=== PATIENT | male | born 1970 | race Caucasian/White ===

== ENCOUNTER 2020-11-21 17:56 | Inpatient (IN) | payer OTHER ==
[~2020-11-21] VITALS: Ht 177.8 cm; Wt 90.7 kg
[2020-11-21] MEDS ORDERED: LOSARTAN-HCTZ1 EAC1 (18:13)
[2020-11-26] MEDS ORDERED: TAMS0.4C PO (14:17)
[2020-11-26] MEDS ORDERED: CEFDINIR300 MG PO (14:17)
== END 2020-11-26 14:33 | disposition home or self-care (01) | DRG 694 ==
LOC: ER 17:56 → MEDI 11-22 18:24
PROVIDERS: ADMIT Internal Medicine; ATTEND Internal Medicine
PROC: BW21ZZZ Computerized Tomography (CT Scan) of Abdomen and Pelvis (ICD-10-PCS; principal; 2020-11-21)
DX: N20.0 Calculus of kidney (principal); N17.9 Acute kidney failure, unspecified; I10 Essential (primary) hypertension; Z87.442 Personal history of urinary calculi; Z20.822 Contact with and (suspected) exposure to COVID-19

== ENCOUNTER 2023-01-12 16:23 | Inpatient (IN) | payer OTHER ==
[~2023-01-12] VITALS: Ht 152.4 cm; Wt 90.7 kg
[~2023-01-12 16:23] MED LIST: CEFDINIR300 MG PO; LOSARTAN-HCTZ1 EAC1; TAMS0.4C PO
[2023-01-12 17:25] LABS: HEMATOCRIT 49.6 % (39.0-48.0); HEMOGLOBIN 16.7 g/dL (13-16.00); MEAN CELL VOLUME 89.6 fL (80.0-100.00); MEAN CORPUSCULAR HEMOGLOBIN 30.2 pg (27.00-32.0); MEAN CORPUSCULAR HGB CONC 33.7 g/dl (32.0-36.0); PLATELET COUNT 180 K/uL (150-450); RED BLOOD COUNT 5.54 M/uL (4.00-6.00); RED CELL DISTRIBUTION WIDTH 13.9 % (11.5-14.5)
[2023-01-12 17:31] LABS: PH,URINE 5.5 (5.0-8.0); URINE APPEARANCE Clear; URINE BILIRRUBIN Negative (NEGATIVE); URINE BLOOD Small; URINE COLOR Yellow; URINE GLUCOSE Negative (NEGATIVE); URINE LEUKOCYTE Negative; URINE NITRATE Negative; URINE UROBILINOGEN 0.2 E.U./dl
[2023-01-12 17:32] LABS: URINE BACTERIA 6.2 uL (0.0-1933); URINE EPITHELIAL CELLS 0.9 uL (0.0-38.8); URINE PROTEIN 100 (NEGATIVE); URINE RBC 23.9 uL (0.0-20.8); URINE WBC 1.3 uL (0.0-23.2)
[2023-01-12 17:43] LABS: CALCIUM 9.3 mg/dL (8.5-10.1); CREATININE SERUM 2.35 mg/dL (0.70-1.30); GFR 29.27; POTASSIUM 4.01 mEq/L (3.5-5.1)
[2023-01-14 16:41] LABS: INR 1.23; PARTIAL THROMBOPLASTIN TIME 31.1 SECONDS (22.0-34.0); PROTHROMBIN TIME 12.7 SECONDS (9.0-11.5)
[2023-01-15 08:06] LABS: HEMATOCRIT 45.9 % (39.0-48.0); HEMOGLOBIN 15.6 g/dL (13-16.00); MEAN CELL VOLUME 89.7 fL (80.0-100.00); MEAN CORPUSCULAR HEMOGLOBIN 30.6 pg (27.00-32.0); MEAN CORPUSCULAR HGB CONC 34.1 g/dl (32.0-36.0); PLATELET COUNT 199 K/uL (150-450); RED BLOOD COUNT 5.11 M/uL (4.00-6.00); RED CELL DISTRIBUTION WIDTH 14.2 % (11.5-14.5)
[2023-01-15 09:11] LABS: ALBUMIN 3.5 gm/dL (3.4-5.0); BILIRUBIN TOTAL 1.07 mg/dL (0.3-1.2); CALCIUM 9.3 mg/dL (8.5-10.1); CREATININE SERUM 2.38 mg/dL (0.70-1.30); GFR 28.85; GLOBULINA 4.2 G/DL (2.4-3.5); POTASSIUM 4.19 mEq/L (3.5-5.1); TOTAL PROTEIN 7.7 gm/dL (6.4-8.2)
[2023-01-15 09:20] LABS: PHOSPHOROUS 3.9 mg/dL (2.5-4.9)
== END 2023-01-16 13:55 | disposition home or self-care (01) | DRG 661 ==
LOC: ER 16:23 → MEDJ 01-13 13:45 → SEC-K 01-13 13:45 → MEDJ 01-13 16:17
PROVIDERS: Emergency Medicine; Internal Medicine; Urology; ADMIT Internal Medicine; ATTEND Internal Medicine
PROC: BW21ZZZ Computerized Tomography (CT Scan) of Abdomen and Pelvis (ICD-10-PCS; 2023-01-12)
PROC: 0T768DZ Dilation of Right Ureter with Intraluminal Device, Via Natural or Artificial Opening Endoscopic (ICD-10-PCS; principal; 2023-01-14 21:15)
DX: N13.2 Hydronephrosis with renal and ureteral calculous obstruction (principal); N17.8 Other acute kidney failure; N12 Tubulo-interstitial nephritis, not specified as acute or chronic; I10 Essential (primary) hypertension; G47.39 Other sleep apnea